=== PATIENT | female | born 1975 | race Caucasian/White ===

== ENCOUNTER 2016-06-05 09:20 | Emergency (ER) | payer OTHER ==
--- NOTE | 2016-06-05 09:37 | EDPHY ---
H & P Time Seen by Provider: 06/05/16 09:36 HPI/ROS: CHIEF COMPLAINT: Jaw and back symptoms HISTORY OF PRESENT ILLNESS: Patient had similar symptoms 2 months ago and then 1 month ago and both times lasted about the same like this today, tender 15 minutes. Today she was cleaning a closet at home today at 9:00 a.m. and felt a sensation in her jaw like extra saliva like she wanted to vomit but did not; she had nausea and she felt some pain between her shoulder blades in the back. Symptoms lasted about 10-15 minutes and then resolved. No chest pain in the front, not short of breath, no vomiting or diaphoresis. REVIEW OF SYSTEMS: Eye: no change in vision ENT: no sore throat, no dental pain or difficulty with swallowing. No facial swelling. Just getting over a cold for the last 2-3 weeks with sore throat head congestion, improving. Cardiac: No palpitations or syncope Pulmonary: no cough or SOB Abdomen: no vomiting, diarrhea, abdominal pain Musculoskeletal: No neck pain. No weakness or numbness in extremities. Skin: Recent Mohs surgery on basal cell cancer on the left side of her chin. Neuro: no headache Constitutional: no fever : no urinary symptoms A comprehensive 10 point review of systems is otherwise negative aside from elements mentioned in the history of present illness. PAST MEDICAL HISTORY: Negative for hypertension, hypercholesterolemia, diabetes , coronary disease, DVT or PE. Social history: Nonsmoker. Family history negative for premature coronary disease. No cocaine. Mother had a DVT in her 60s after orthopedic surgery. General Appearance: Alert and conversant, cooperative. Eyes: No scleral icterus. ENT, Mouth: Normal mucous membranes. No dental tenderness or gum swelling. No trismus. No stridor or drooling. No facial swelling or tenderness. Respiratory: Normal respiratory effort, breath sounds equal, lungs are clear to auscultation. Cardiovascular: Regular rate and rhythm. Gastrointestinal: Abdomen is soft and non tender. Neurological: Alert and oriented x3. Normally conversant. Face symmetric, normal movement and sensation in all extremities. Skin: Healing left chin surgical incision, no surrounding redness and no swelling there. Musculoskeletal: No peripheral edema and no joint swelling. No leg tenderness. Psychiatric: Not agitated. Emergency Department course/MDM: Chest x-ray and troponin. EKG is normal. Results discussed with the patient. I did emphasize her that I recommended follow up with [facility] for consideration of stress testing. However I think that her risk for having these symptoms represent acute coronary syndrome or unstable angina is very unlikely. Smoking Status: Never smoked Constitutional: Initial Vital Signs Temperature (C) 36.3 C 06/05/16 09:22 Heart Rate 68 06/05/16 09:22 Respiratory Rate 18 06/05/16 09:22 Blood Pressure 123/80 H 06/05/16 09:22 O2 Sat (%) 98 06/05/16 09:22 O2 Delivery Mode Room Air Allergies/Adverse Reactions: No Known Allergies Allergy (Verified 06/05/16 09:21) Home Medications: Medication Instructions Recorded NK [No Known Home Meds] 06/05/16 Medical Decision Making - Diagnostics EKG Interpretation: 12-lead EKG interpreted by me; official reading is in trace master. My interpretation is sinus rhythm, normal, no ischemic changes. Rate 71. Differential Diagnosis: Differential for jaw and back pain considered including but not limited to jaw infection, dental problem, acute coronary syndrome, pulmonary embolism, vascular problem including dissection. - Data Points Laboratory Results: Laboratory Results 06/05/16 09:35 06/05/16 09:35 06/05/16 09:35 WBC 5.02 10^3/uL (3.80-9.50) RBC 5.04 10^6/uL (4.18-5.33) Hgb 15.6 g/dL (12.6-16.3) Hct 45.4 % (38.0-47.0) MCV 90.1 fL (81.5-99.8) MCH 31.0 pg (27.9-34.1) MCHC 34.4 g/dL (32.4-36.7) RDW 12.0 % (11.5-15.2) Plt Count 269 10^3/uL (150-400) MPV 11.0 fL (8.7-11.7) Neut % (Auto) 60.7 % (39.3-74.2) Lymph % (Auto) 31.7 % (15.0-45.0) [place] % (Auto) 5.6 % (4.5-13.0) Eos % (Auto) 0.8 % (0.6-7.6) Baso % (Auto) 1.0 % (0.3-1.7) Nucleat RBC Rel Count 0.0 % (0.0-0.2) Absolute Neuts (auto) 3.05 10^3/uL (1.70-6.50) Absolute Lymphs (auto) 1.59 10^3/uL (1.00-3.00) Absolute Monos (auto) 0.28 L 10^3/uL (0.30-0.80) Absolute Eos (auto) 0.04 10^3/uL (0.03-0.40) Absolute Basos (auto) 0.05 10^3/uL (0.02-0.10) Absolute Nucleated RBC 0.00 10^3/uL (0-0.01) Immature Gran % 0.2 % (0.0-1.1) Immature Gran # 0.01 10^3/uL (0.00-0.10) Sodium 143 mEq/L (134-144) Potassium 4.5 mEq/L (3.5-5.2) Chloride 106 mEq/L (97-110) Carbon Dioxide 26 mEq/l (22-31) Anion Gap 11 mEq/L (8-16) BUN 13 mg/dL (7-23) Creatinine 0.9 mg/dL (0.6-1.0) Estimated GFR > 60 Glucose 90 mg/dL (70-100) Calcium 9.5 mg/dL (8.5-10.4) Troponin I < 0.012 ng/mL (0-0.034) Departure - Departure Disposition: Home, Routine, Self-Care Clinical Impression: jaw and back symptoms Condition: Good Instructions: Back Pain (ED) Referrals: Vania Franco MD [Primary Care Provider] - As per Instructions Aldo Fung MD [Medical Doctor] - As per Instructions (Call [facility] Tuesday morning for consideration of stress test in the office this week.)
--- NOTE | 2016-06-05 09:41 | CPEKG ---
Heart Rate: 71 RR Interval: 845 P-R Interval: 148 QRSD Interval: 80 QT Interval: 384 QTC Interval: 418 P [place]: 55 QRS [place]: 23 T Wave [place]: 29 EKG Severity - NORMAL ECG - EKG Impression: SINUS RHYTHM Electronically Signed By: Severo Nava 05-Jun-2016 10:09:07
--- NOTE | 2016-06-05 10:24 | DX ---
PA and Lateral Chest June 05, 2016 Clinical Indications: Chest pain and nausea. Findings: The lungs are clear, and no masses are found. The heart and pulmonary vessels are normal. There are no pleural effusions and no pneumothorax. The bones are unremarkable for this age. Impression: No acute cardiopulmonary process.
[2016-06-05 10:47] LABS: % IMMATURE GRANULYOCYTES 0.2 % (0.0-1.1); ABSOLUTE IMMATURE GRANULOCYTES 0.01 10^3/uL (0.00-0.10); ADD DIFF? NO; ADD MORPH? NO; ADD SCAN? NO; ATYPICAL LYMPHOCYTE FLAG 10 (0-99); FRAGMENT RBC FLAG 0 (0-99); HEMATOCRIT 45.4 % (38.0-47.0); HEMOGLOBIN 15.6 g/dL (12.6-16.3); LEFT SHIFT FLG 0 (0-99); LIPEMIA HEMOLYSIS FLAG 90 (0-99); MEAN CELL HEMOGLOBIN CONCENTR. 34.4 g/dL (32.4-36.7); MEAN CELL VOLUME 90.1 fL (81.5-99.8); PLATELET CLUMPS FLAG 0 (0-99); PLATELET COUNT 269 10^3/uL (150-400); RED BLOOD CELL COUNT 5.04 10^6/uL (4.18-5.33)
[2016-06-05 10:52] LABS: ANION GAP 11 mEq/L (8-16); CALCIUM 9.5 mg/dL (8.5-10.4); CARBON DIOXIDE 26 mEq/l (22-31); CHLORIDE 106 mEq/L (97-110); CREATININE 0.9 mg/dL (0.6-1.0); GLOMERULAR FILTRATION RATE > 60; GLUCOSE 90 mg/dL (70-100); POTASSIUM 4.5 mEq/L (3.5-5.2); SODIUM 143 mEq/L (134-144)
[2016-06-05 11:04] LABS: TROPONIN I < 0.012 ng/mL (0-0.034)
[2016-06-05 11:24] VITALS: BP 112/68; PULSE 61; RESP 14; TEMP 97.5; O2SAT 99
== END 2016-06-05 11:23 | disposition home or self-care (01) ==
DX: R68.84 Jaw pain (principal); M54.9 Dorsalgia, unspecified

== ENCOUNTER → 2017-02-02 | Outpatient (CLI) | payer OTHER | LOC: FIMAGING 11:05 | PROVIDERS: ATTEND Family Medicine | DX: Z12.31 Encounter for screening mammogram for malignant neoplasm of breast (principal) | CPT/HCPCS: G0202 ==

== ENCOUNTER → 2017-07-20 | Outpatient (CLI) | payer OTHER | LOC: BMCIMAGING 09:05 | PROVIDERS: ATTEND Family Medicine | DX: J98.4 Other disorders of lung (principal) ==

== ENCOUNTER → 2018-02-17 | Outpatient (CLI) | payer OTHER | LOC: FIMAGING 15:45 | PROVIDERS: ATTEND Family Medicine | DX: Z12.31 Encounter for screening mammogram for malignant neoplasm of breast (principal) ==